=== PATIENT | male | born 1940 | race Caucasian/White ===

== ENCOUNTER 2021-01-12 15:04 | Outpatient (CLI) | payer MEDICARE | END 2021-01-12 15:05 | disposition home or self-care (01) | LOC: RAD-FRANK 15:04 | PROVIDERS: ATTEND Nurse Practitioner Family | DX: M25.512 Pain in left shoulder (principal) ==

== ENCOUNTER 2022-08-15 19:02 | Inpatient (IN) | payer MEDICARE ==
[2022-08-15] MEDS ORDERED: Morphine 4 MG/ML VIAL ONE (19:53)
[2022-08-15 19:59] LABS: INR-International Normal Ratio 0.9; Prothrombin Time 12.9 sec (12.0-14.7)
[2022-08-15 20:05] LABS: #Eosinphils 0.3 thou/uL (0.0-0.7); #Lymphocytes 1.1 thou/uL (1.20-3.40); #Monocytes 0.4 thou/uL (0.11-0.59); #Neutrophils 7.5 thou/uL (1.40-6.50); %Basophils 0.2 % (0.0-1.0); %Eosinophils 3.1 % (0.0-10.0); %Lymphocytes 11.4 % (21.0-51.0); %Monocytes 4.8 % (0.0-10.0); %Neutrophils 80.5 % (42.0-75.0); Mean Corpuscular HGB CONC 34.8 g/dL (32.0-36.0); Mean Corpuscular Hemoglobin 32.7 pg (27.0-31.0); Mean Corpuscular Volume 94.1 fl (78.0-98.0); Mean Platelet Volume 8.8 fL (7.4-10.4); Platelet Count 113 10x3/uL (130-400); RBC Distribution Width 12.1 % (11.5-14.5); Red Blood Cell (RBC) Count 3.37 mill/uL (4.70-6.10); White Blood Cell (WBC) Count 9.4 10x3/uL (4.8-10.8)
[2022-08-15 20:09] LABS: ALT (SGPT) 11 U/L (8-55); AST (SGOT) 16 U/L (5-34); Albumin 3.9 g/dL (3.4-4.8); Alkaline Phosphatase 103 U/L (40-110); Anion Gap 12 mmol/L (10-20); BUN (Urea Nitrogen) 31 mg/dL (8.4-25.7); Bilirubin, Total 0.4 mg/dL (0.2-1.2); Calc. Creatinine Clearance 0 mL/min (70-130); Carbon Dioxide 26 mmol/L (23-31); Chloride 108 mmol/L (98-107); Estimated GFR 39; Glucose 144 mg/dL (83-110); Protein, Total 6.9 g/dL (5.8-8.1); Sodium 141 mmol/L (136-145)
[2022-08-15 20:35] LABS: Platelet Morphology Comment Appears Decreased; RBC Morphology Normal
[2022-08-15] MEDS ORDERED: Morphine 2 MG/ML VIAL ONE (21:08)
[2022-08-15] MEDS ORDERED: Ipratropium/Albuterol 3 ML NEB NEB PRN (21:46)
[2022-08-15] MEDS ORDERED: Dextrose 5% in Water 1,000 ML IV PRN (21:46)
[2022-08-15] MEDS ORDERED: Ondansetron ODT 4 MG TAB PO PRN (21:46)
[2022-08-15] MEDS ORDERED: Ondansetron PF 4 MG/2 ML Vial IVP PRN (21:46)
[2022-08-15] MEDS ORDERED: Dextrose 50% Abboject 50 ML SYRINGE SLOW IVP PRN (21:46)
[2022-08-15] MEDS ORDERED: hydrALAZINE 20 MG/ML VIAL SLOW IVP PRN (21:46)
[2022-08-15] MEDS ORDERED: Cyclobenzaprine 10 MG TAB PO PRN (21:49)
[2022-08-15] MEDS ORDERED: traMADol HCl 50 MG TAB PO PRN (21:49)
[2022-08-15] MEDS ORDERED: Morphine 4 MG/ML VIAL SLOW IVP PRN (22:54)
[2022-08-15] MEDS: Acetaminophen 500 MG TAB PO SCH (23:14)
[2022-08-15] MEDS: Gabapentin 100 MG CAP PO SCH (23:14)
[2022-08-15] MEDS: traMADol HCl 50 MG TAB PO SCH (23:15)
[2022-08-15] MEDS: Sodium Chloride 0.9% 1,000 ML IV SCH (23:15)
[2022-08-15 23:40] VITALS: BMI 27.9
[2022-08-16 00:22] LABS: SARS-CoV-2 NAA Rapid Test Not Detected (NotDetected)
[2022-08-16] MEDS: Acetaminophen 500 MG TAB PO SCH ×4 (04:50→22:42)
[2022-08-16] MEDS: Gabapentin 100 MG CAP PO SCH ×3 (05:04→22:42)
[2022-08-16] MEDS: Sodium Chloride 0.9% 1,000 ML IV SCH (05:54)
[2022-08-16] MEDS: Morphine 4 MG/ML VIAL SLOW IVP PRN ×2 (06:29→09:53)
[2022-08-16 06:39] LABS: #Eosinphils 0.1 thou/uL (0.0-0.7); #Lymphocytes 1.2 thou/uL (1.20-3.40); #Monocytes 0.4 thou/uL (0.11-0.59); #Neutrophils 4.8 thou/uL (1.40-6.50); %Basophils 0.3 % (0.0-1.0); %Eosinophils 1.2 % (0.0-10.0); %Lymphocytes 18.8 % (21.0-51.0); %Monocytes 6.4 % (0.0-10.0); %Neutrophils 73.3 % (42.0-75.0); Hemoglobin 9.8 g/dL (14.0-18.0); Mean Corpuscular HGB CONC 34.3 g/dL (32.0-36.0); Mean Corpuscular Hemoglobin 32.3 pg (27.0-31.0); Mean Corpuscular Volume 94.1 fl (78.0-98.0); Mean Platelet Volume 8.3 fL (7.4-10.4); Platelet Count 87 10x3/uL (130-400); RBC Distribution Width 12.2 % (11.5-14.5); Red Blood Cell (RBC) Count 3.02 mill/uL (4.70-6.10); White Blood Cell (WBC) Count 6.6 10x3/uL (4.8-10.8)
[2022-08-16 07:02] LABS: Anion Gap 11 mmol/L (10-20); BUN (Urea Nitrogen) 33 mg/dL (8.4-25.7); Calc. Creatinine Clearance 50 mL/min (70-130); Calcium 8.6 mg/dL (7.8-10.44); Carbon Dioxide 25 mmol/L (23-31); Chloride 109 mmol/L (98-107); Estimated GFR 46; Glucose 119 mg/dL (83-110); Magnesium 1.7 mg/dL (1.6-2.6); Phosphorus 3.4 mg/dL (2.3-4.7); Potassium 4.6 mmol/L (3.5-5.1); Sodium 140 mmol/L (136-145)
[2022-08-16] MEDS ORDERED: PHOS-NAK 1 PKT PACK PO SCH (08:00)
[2022-08-16] MEDS ORDERED: Magnesium 2 GM/50 ML(in water) 2 GM in Premix Bag 1 BAG IVPB SCH (08:00)
[2022-08-16] MEDS: Senokot S 8.6-50 MG TAB PO SCH ×2 (09:52→22:42)
[2022-08-16] MEDS: Polyethylene Glycol 3350 17 GM Packet PO SCH (09:52)
[2022-08-16] MEDS: Tamsulosin HCl 0.4 MG CAP PO SCH (09:52)
[2022-08-16] MEDS: Famotidine 20 MG TAB PO SCH (09:52)
[2022-08-16] MEDS ORDERED: CEFAZOLIN 2 GM in Sodium Chloride 0.9% 100 ML IVPB SCH ×2 (10:15→17:09)
[2022-08-16] MEDS: traMADol HCl 50 MG TAB PO SCH ×2 (12:26→22:42)
[2022-08-16] MEDS ORDERED: Sodium Chloride 0.9% 100 ML ONE (15:25)
[2022-08-16] MEDS ORDERED: CEFAZOLIN 2 GM VIAL ONE (15:25)
[2022-08-16] MEDS ORDERED: fentaNYL PF 100 MCG/2 ML SYRINGE ONE (15:26)
[2022-08-16] MEDS ORDERED: Lidocaine 1% PF 5 ML VIAL ONE (15:35)
[2022-08-16] MEDS ORDERED: ePHEDrine 50 MG/ML VIAL ONE (15:35)
[2022-08-16] MEDS ORDERED: PHENYLEPHRINE-NS 100 MCG/ML 10 ML SYRINGE ONE (15:35)
[2022-08-16] MEDS ORDERED: PROPOFOL 200 MG/20 ML VIAL ONE (15:35)
[2022-08-16] MEDS ORDERED: Ondansetron PF 4 MG/2 ML Vial ONE (15:35)
[2022-08-16] MEDS ORDERED: Rocuronium Bromide 10 MG/ML (10ML VIAL) ONE (15:35)
[2022-08-16] MEDS ORDERED: Phenylephrine 10 MG/ML VIAL ONE (16:01)
[2022-08-16] MEDS ORDERED: SUGAMMADEX SODIUM 200 MG/2 ML VIAL ONE (16:35)
[2022-08-17] MEDS: Acetaminophen 500 MG TAB PO SCH ×4 (03:16→20:59)
[2022-08-17] MEDS: Gabapentin 100 MG CAP PO SCH ×3 (05:35→20:54)
[2022-08-17 06:18] LABS: Anion Gap 10 mmol/L (10-20); BUN (Urea Nitrogen) 25 mg/dL (8.4-25.7); Calc. Creatinine Clearance 55 mL/min (70-130); Calcium 8.7 mg/dL (7.8-10.44); Carbon Dioxide 25 mmol/L (23-31); Chloride 110 mmol/L (98-107); Estimated GFR 51; Glucose 115 mg/dL (83-110); Magnesium 1.9 mg/dL (1.6-2.6); Sodium 140 mmol/L (136-145)
[2022-08-17 06:31] LABS: #Eosinphils 0.1 thou/uL (0.0-0.7); #Lymphocytes 0.6 thou/uL (1.20-3.40); #Monocytes 0.3 thou/uL (0.11-0.59); %Basophils 0.2 % (0.0-1.0); %Eosinophils 2.3 % (0.0-10.0); %Lymphocytes 11.5 % (21.0-51.0); %Monocytes 5.7 % (0.0-10.0); %Neutrophils 80.3 % (42.0-75.0); Hemoglobin 8.9 g/dL (14.0-18.0); Mean Corpuscular HGB CONC 34.1 g/dL (32.0-36.0); Mean Corpuscular Volume 96.7 fl (78.0-98.0); Mean Platelet Volume 8.5 fL (7.4-10.4); Platelet Count 77 10x3/uL (130-400)
[2022-08-17] MEDS: Polyethylene Glycol 3350 17 GM Packet PO SCH (09:48)
[2022-08-17] MEDS: Tamsulosin HCl 0.4 MG CAP PO SCH (09:48)
[2022-08-17] MEDS: Senokot S 8.6-50 MG TAB PO SCH ×2 (09:48→20:54)
[2022-08-17] MEDS: Famotidine 20 MG TAB PO SCH (09:49)
[2022-08-17] MEDS: traMADol HCl 50 MG TAB PO SCH ×2 (12:59→22:16)
[2022-08-17] MEDS: hydrALAZINE 25 MG TAB PO SCH ×2 (15:01→20:54)
[2022-08-17] MEDS: Heparin 5,000 UNITS/ML VIAL SC SCH ×2 (16:28→20:56)
[2022-08-17] MEDS: Rosuvastatin 20 MG TAB PO SCH (20:54)
[2022-08-18] MEDS: Acetaminophen 500 MG TAB PO SCH ×4 (03:29→20:57)
[2022-08-18] MEDS: Gabapentin 100 MG CAP PO SCH ×3 (05:40→20:57)
[2022-08-18 06:31] LABS: Anion Gap 12 mmol/L (10-20); BUN (Urea Nitrogen) 28 mg/dL (8.4-25.7); Calc. Creatinine Clearance 54 mL/min (70-130); Calcium 8.9 mg/dL (7.8-10.44); Carbon Dioxide 25 mmol/L (23-31); Chloride 107 mmol/L (98-107); Estimated GFR 50; Glucose 115 mg/dL (83-110); Magnesium 1.8 mg/dL (1.6-2.6); Potassium 4.5 mmol/L (3.5-5.1); Sodium 139 mmol/L (136-145)
[2022-08-18 06:33] LABS: Mean Corpuscular HGB CONC 33.4 g/dL (32.0-36.0); Mean Corpuscular Hemoglobin 32.1 pg (27.0-31.0); Mean Platelet Volume 8.7 fL (7.4-10.4); Platelet Count 89 10x3/uL (130-400); RBC Distribution Width 11.9 % (11.5-14.5); White Blood Cell (WBC) Count 6.7 10x3/uL (4.8-10.8)
[2022-08-18 06:53] LABS: Band 2 % (5-11); Eosinophils 6 % (0-10); Lymphocytes 17 % (21-51); MDiff Complete? YES; Monocytes 3 % (0-10); Neutrophil 72 % (42-75); Platelet Morphology Comment Appears Decreased
[2022-08-18] MEDS: Metoprolol Tartrate 25 MG TAB PO SCH (08:51)
[2022-08-18] MEDS: Polyethylene Glycol 3350 17 GM Packet PO SCH (08:51)
[2022-08-18] MEDS: Tamsulosin HCl 0.4 MG CAP PO SCH (08:51)
[2022-08-18] MEDS: Senokot S 8.6-50 MG TAB PO SCH ×2 (08:51→20:46)
[2022-08-18] MEDS: Famotidine 20 MG TAB PO SCH (08:51)
[2022-08-18] MEDS: Heparin 5,000 UNITS/ML VIAL SC SCH ×3 (08:51→20:47)
[2022-08-18] MEDS: hydrALAZINE 25 MG TAB PO SCH ×3 (08:59→20:45)
[2022-08-18] MEDS: traMADol HCl 50 MG TAB PO SCH ×2 (10:15→23:20)
[2022-08-18] MEDS: Rosuvastatin 20 MG TAB PO SCH (20:46)
[2022-08-19] MEDS: Acetaminophen 500 MG TAB PO SCH ×4 (04:54→22:43)
[2022-08-19] MEDS: Gabapentin 100 MG CAP PO SCH ×3 (05:57→22:43)
[2022-08-19 06:56] LABS: Anion Gap 13 mmol/L (10-20); BUN (Urea Nitrogen) 33 mg/dL (8.4-25.7); Calc. Creatinine Clearance 51 mL/min (70-130); Calcium 8.8 mg/dL (7.8-10.44); Carbon Dioxide 22 mmol/L (23-31); Chloride 108 mmol/L (98-107); Estimated GFR 47; Glucose 107 mg/dL (83-110); Magnesium 1.8 mg/dL (1.6-2.6); Phosphorus 3.2 mg/dL (2.3-4.7); Potassium 4.8 mmol/L (3.5-5.1); Sodium 138 mmol/L (136-145)
[2022-08-19 07:20] LABS: #Eosinphils 0.4 thou/uL (0.0-0.7); #Lymphocytes 1.2 thou/uL (1.20-3.40); #Monocytes 0.5 thou/uL (0.11-0.59); #Neutrophils 3.8 thou/uL (1.40-6.50); %Basophils 0.2 % (0.0-1.0); %Eosinophils 7.7 % (0.0-10.0); %Lymphocytes 19.6 % (21.0-51.0); %Monocytes 7.9 % (0.0-10.0); %Neutrophils 64.6 % (42.0-75.0); Hemoglobin 8.9 g/dL (14.0-18.0); Mean Corpuscular HGB CONC 33.8 g/dL (32.0-36.0); Mean Corpuscular Volume 94.7 fl (78.0-98.0); Mean Platelet Volume 10.1 fL (7.4-10.4); Platelet Count 89 10x3/uL (130-400); Red Blood Cell (RBC) Count 2.79 mill/uL (4.70-6.10); White Blood Cell (WBC) Count 5.9 10x3/uL (4.8-10.8)
[2022-08-19] MEDS: Tamsulosin HCl 0.4 MG CAP PO SCH (08:07)
[2022-08-19] MEDS: Heparin 5,000 UNITS/ML VIAL SC SCH ×3 (08:07→20:36)
[2022-08-19] MEDS: Senokot S 8.6-50 MG TAB PO SCH ×2 (08:08→20:36)
[2022-08-19] MEDS: Famotidine 20 MG TAB PO SCH (08:08)
[2022-08-19] MEDS: hydrALAZINE 25 MG TAB PO SCH ×3 (08:08→20:33)
[2022-08-19] MEDS: Metoprolol Tartrate 25 MG TAB PO SCH (08:08)
[2022-08-19] MEDS: Polyethylene Glycol 3350 17 GM Packet PO SCH (08:09)
[2022-08-19] MEDS ORDERED: PHOS-NAK 1 PKT PACK PO SCH (08:15)
[2022-08-19] MEDS ORDERED: Magnesium 2 GM/50 ML(in water) 2 GM in Premix Bag 1 BAG IVPB SCH (08:30)
[2022-08-19] MEDS: traMADol HCl 50 MG TAB PO SCH ×2 (10:45→22:43)
[2022-08-19] MEDS: Rosuvastatin 20 MG TAB PO SCH (20:35)
[2022-08-20] MEDS: Acetaminophen 500 MG TAB PO SCH ×4 (04:58→20:24)
[2022-08-20] MEDS: Gabapentin 100 MG CAP PO SCH ×3 (05:50→20:15)
[2022-08-20 06:17] LABS: Anion Gap 11 mmol/L (10-20); BUN (Urea Nitrogen) 31 mg/dL (8.4-25.7); Calc. Creatinine Clearance 56 mL/min (70-130); Calcium 8.7 mg/dL (7.8-10.44); Carbon Dioxide 27 mmol/L (23-31); Chloride 107 mmol/L (98-107); Estimated GFR 52; Glucose 99 mg/dL (83-110); Magnesium 1.8 mg/dL (1.6-2.6); Phosphorus 2.9 mg/dL (2.3-4.7); Potassium 4.6 mmol/L (3.5-5.1); Sodium 140 mmol/L (136-145)
[2022-08-20 06:26] LABS: #Eosinphils 0.3 thou/uL (0.0-0.7); #Monocytes 0.3 thou/uL (0.11-0.59); #Neutrophils 2.6 thou/uL (1.40-6.50); %Basophils 0.2 % (0.0-1.0); %Eosinophils 8.1 % (0.0-10.0); %Lymphocytes 22.9 % (21.0-51.0); %Monocytes 7.6 % (0.0-10.0); %Neutrophils 61.2 % (42.0-75.0); Hemoglobin 8.3 g/dL (14.0-18.0); Mean Corpuscular HGB CONC 33.5 g/dL (32.0-36.0); Mean Corpuscular Hemoglobin 31.9 pg (27.0-31.0); Mean Corpuscular Volume 95.4 fl (78.0-98.0); Mean Platelet Volume 8.3 fL (7.4-10.4); Platelet Count 115 10x3/uL (130-400); RBC Distribution Width 11.8 % (11.5-14.5); Red Blood Cell (RBC) Count 2.59 mill/uL (4.70-6.10); White Blood Cell (WBC) Count 4.3 10x3/uL (4.8-10.8)
[2022-08-20] MEDS ORDERED: Magnesium 2 GM/50 ML(in water) 2 GM in Premix Bag 1 BAG IVPB SCH (08:00)
[2022-08-20] MEDS ORDERED: PHOS-NAK 1 PKT PACK PO SCH (08:00)
[2022-08-20] MEDS: Polyethylene Glycol 3350 17 GM Packet PO SCH (09:14)
[2022-08-20] MEDS: Senokot S 8.6-50 MG TAB PO SCH ×2 (09:15→20:16)
[2022-08-20] MEDS: Tamsulosin HCl 0.4 MG CAP PO SCH (09:15)
[2022-08-20] MEDS: Famotidine 20 MG TAB PO SCH (09:15)
[2022-08-20] MEDS: Heparin 5,000 UNITS/ML VIAL SC SCH ×3 (09:15→20:16)
[2022-08-20] MEDS: Metoprolol Tartrate 25 MG TAB PO SCH (09:16)
[2022-08-20] MEDS: hydrALAZINE 25 MG TAB PO SCH ×3 (09:16→20:16)
[2022-08-20] MEDS: traMADol HCl 50 MG TAB PO SCH ×2 (12:24→23:49)
[2022-08-20] MEDS: Rosuvastatin 20 MG TAB PO SCH (20:17)
[2022-08-21] MEDS: traMADol HCl 50 MG TAB PO SCH (00:05)
[2022-08-21] MEDS: Acetaminophen 500 MG TAB PO SCH ×2 (05:42→09:58)
[2022-08-21] MEDS: Gabapentin 100 MG CAP PO SCH ×2 (05:42→14:42)
[2022-08-21] MEDS: Metoprolol Tartrate 25 MG TAB PO SCH (09:58)
[2022-08-21] MEDS: Tamsulosin HCl 0.4 MG CAP PO SCH (09:58)
[2022-08-21] MEDS: Heparin 5,000 UNITS/ML VIAL SC SCH ×2 (09:58→14:42)
[2022-08-21] MEDS: hydrALAZINE 25 MG TAB PO SCH ×2 (09:58→14:42)
[2022-08-21] MEDS: Senokot S 8.6-50 MG TAB PO SCH (09:59)
[2022-08-21] MEDS: Polyethylene Glycol 3350 17 GM Packet PO SCH (09:59)
[2022-08-21] MEDS ORDERED: Acetaminophen/Codeine 30-300mg Tablet PO SCH (12:00)
[2022-08-21] MEDS ORDERED: Acetaminophen 325 MG TAB PO SCH (12:00)
[2022-08-21 12:40] VITALS: TEMP 97.4
[2022-08-21 12:46] VITALS: BP 108/55
== END 2022-08-21 14:47 | DRG 481 ==
LOC: ERS 19:02 → SURG B 20:44 → SURG A 08-19 18:04
PROVIDERS: ADMIT Surgery; ATTEND Surgery
PROC: 0QH604Z Insertion of Internal Fixation Device into Right Upper Femur, Open Approach (ICD-10-PCS; principal; 2022-08-16)
DX: S72.141A Displaced intertrochanteric fracture of right femur, initial encounter for closed fracture (principal); N17.9 Acute kidney failure, unspecified; Z20.822 Contact with and (suspected) exposure to COVID-19; I25.10 Atherosclerotic heart disease of native coronary artery without angina pectoris; I10 Essential (primary) hypertension; E78.5 Hyperlipidemia, unspecified; I51.7 Cardiomegaly; W07.XXXA Fall from chair, initial encounter; D69.6 Thrombocytopenia, unspecified; E83.42 Hypomagnesemia; R33.9 Retention of urine, unspecified; Z90.49 Acquired absence of other specified parts of digestive tract; Z88.8 Allergy status to other drugs, medicaments and biological substances; Z95.1 Presence of aortocoronary bypass graft; Z79.899 Other long term (current) drug therapy; Z79.82 Long term (current) use of aspirin
CPT/HCPCS: 36415; 70450; 71045; 72125; 72170; 80048; 80053; 83735; 84100; 85025; 85610; 85730; 86850; 86900; 86901; 93005; 96374; 96376; C1713; J1644; J2270; J2272; J2370; J2405; J2704; J3475; J3490; J7050; U0002

== ENCOUNTER 2022-11-07 10:25 | Inpatient (IN) | payer MEDICARE, OTHER ==
[2022-11-07 11:45] LABS: Actual Bicarbonate (HCO3v) 23 mEq/L (22-28); Base Excess 1.1 mEq/L (-2.0 to +3.0); Calcium, Ionized (venous) 0.91 mmol/L (1.16-1.32); Chloride (VBG) 111 mmol/L (98-106); Potassium (VBG) 4.71 mmol/L (3.70-5.30); pH (venous) 7.61 (7.32-7.43)
[2022-11-07 11:46] LABS: Hemoglobin (Hb) 4.8 g/dL (12.6-17.4)
[2022-11-07 12:07] LABS: ALT (SGPT) 12 U/L (8-55); AST (SGOT) 11 U/L (5-34); Albumin 2.6 g/dL (3.4-4.8); Alkaline Phosphatase 62 U/L (40-110); Anion Gap 13 mmol/L (10-20); BUN (Urea Nitrogen) 58 mg/dL (8.4-25.7); Bilirubin, Total 0.4 mg/dL (0.2-1.2); Calc. Creatinine Clearance 0 mL/min (70-130); Calcium 7.5 mg/dL (7.8-10.44); Carbon Dioxide 24 mmol/L (23-31); Chloride 113 mmol/L (98-107); Estimated GFR 58; Glucose 131 mg/dL (83-110); INR-International Normal Ratio 1.1; PTT 28.4 sec (22.9-36.1); Potassium 4.9 mmol/L (3.5-5.1); Protein, Total 4.6 g/dL (5.8-8.1); Prothrombin Time 14.9 sec (12.0-14.7); Sodium 145 mmol/L (136-145)
[2022-11-07 12:09] LABS: Hemoglobin 4.8 g/dL (14.0-18.0)
[2022-11-07 12:20] LABS: Bilirubin Negative (Negative); Blood, Urine Negative (Negative); Clarity Clear (Clear); Glucose, Urine (Dipstick) Normal (Negative); Ketone, Urine Negative (Negative); Leukocyte Negative Leu/uL (Negative); Nitrite Negative (Negative); Protein, Urine (Dipstick) Negative (Neg-Trace); Specific Gravity, Urine 1.014 (1.002-1.036); Urobilinogen Normal mg/dL (Less than 2)
[2022-11-07] MEDS ORDERED: Pantoprazole 40 MG VIAL ONE (12:20)
[2022-11-07 12:24] LABS: #Lymphocytes 0.9 thou/uL (1.20-3.40); #Monocytes 0.3 thou/uL (0.11-0.59); #Neutrophils 4.8 thou/uL (1.40-6.50); %Basophils 0.6 % (0.0-1.0); %Eosinophils 0.5 % (0.0-10.0); %Monocytes 4.1 % (0.0-10.0); %Neutrophils 79.8 % (42.0-75.0); Mean Corpuscular HGB CONC 32.9 g/dL (32.0-36.0); Mean Corpuscular Hemoglobin 30.9 pg (27.0-31.0); Mean Platelet Volume 8.9 fL (7.4-10.4); Platelet Count 95 10x3/uL (130-400); RBC Distribution Width 12.9 % (11.5-14.5); Red Blood Cell (RBC) Count 1.53 mill/uL (4.70-6.10)
[2022-11-07] MEDS ORDERED: Iopamidol-370 76% 500 ML MDV (1 ML CHARGE) ONE (12:38)
[2022-11-07] MEDS ORDERED: cefTRIAXone (ROCEPHIN) 2 GM VIAL ONE (13:57)
[2022-11-07 16:30] VITALS: BMI 29.8
[2022-11-07] MEDS ORDERED: fentaNYL 50 mcg/mL 1 mL Vial ONE (16:52)
[2022-11-07] MEDS ORDERED: Ondansetron ODT 4 MG TAB PO PRN (17:13)
[2022-11-07] MEDS ORDERED: Acetaminophen/Codeine 30-300mg Tablet PO PRN (17:13)
[2022-11-07] MEDS ORDERED: hydrALAZINE 20 MG/ML VIAL SLOW IVP PRN (17:13)
[2022-11-07] MEDS ORDERED: Ondansetron PF 4 MG/2 ML Vial IVP PRN (17:13)
[2022-11-07] MEDS ORDERED: PROPOFOL 200 MG/20 ML VIAL ONE (17:23)
[2022-11-07] MEDS ORDERED: Succinylcholine Chloride 100 MG/5 ML SYRINGE FS ONE (17:23)
[2022-11-07] MEDS ORDERED: Lidocaine 1% PF 5 ML VIAL ONE (17:23)
[2022-11-07] MEDS ORDERED: Ondansetron PF 4 MG/2 ML Vial ONE (17:23)
[2022-11-07] MEDS ORDERED: ePHEDrine Sulfate 50 MG/10 ML VIAL ONE (17:23)
[2022-11-07] MEDS ORDERED: Calcium Chloride 1 GM/10 ML Abboject SYRINGE ONE (17:23)
[2022-11-07] MEDS ORDERED: EPINEPHrine 1 MG/10 ML Abboject SYRINGE ONE (17:23)
[2022-11-07] MEDS ORDERED: Promethazine HCl 25 MG/ML VIAL IM PRN (18:12)
[2022-11-07] MEDS ORDERED: Ondansetron HCl/PF 4 MG/2 ML Vial IVP PRN (18:12)
[2022-11-07] MEDS: Pantoprazole 40 MG VIAL IVP SCH (21:28)
[2022-11-07] MEDS: Sodium Chloride 0.9% 1,000 ML IV SCH (21:29)
[2022-11-07] MEDS: hydrALAZINE 25 MG TAB PO SCH (21:35)
[2022-11-07] MEDS: Gabapentin 100 MG CAP PO SCH (21:35)
[2022-11-07 21:54] LABS: Hemoglobin 8.1 g/dL (14.0-18.0)
[2022-11-08] MEDS: Gabapentin 100 MG CAP PO SCH ×3 (04:48→21:42)
[2022-11-08] MEDS ORDERED: Electrolyte Replacement Protocol 1 EACH FS SCH (05:00)
[2022-11-08 05:21] LABS: Actual Bicarbonate (HCO3v) 24 mEq/L (22-28); Chloride (VBG) 112 mmol/L (98-106); Hemoglobin (Hb) 7.6 g/dL (12.6-17.4); Potassium (VBG) 4.34 mmol/L (3.70-5.30); Sodium 144.7 mmol/L (133-146); pH (venous) 7.37 (7.32-7.43)
[2022-11-08 05:57] LABS: ALT (SGPT) 14 U/L (8-55); AST (SGOT) 14 U/L (5-34); Albumin 2.8 g/dL (3.4-4.8); Alkaline Phosphatase 65 U/L (40-110); Anion Gap 11 mmol/L (10-20); BUN (Urea Nitrogen) 65 mg/dL (8.4-25.7); Bilirubin, Total 0.8 mg/dL (0.2-1.2); Calc. Creatinine Clearance 59 mL/min (70-130); Carbon Dioxide 24 mmol/L (23-31); Chloride 115 mmol/L (98-107); Estimated GFR 51; Glucose 114 mg/dL (83-110); Potassium 4.5 mmol/L (3.5-5.1); Protein, Total 4.8 g/dL (5.8-8.1); Sodium 145 mmol/L (136-145)
[2022-11-08 06:01] LABS: #Eosinphils 0.1 thou/uL (0.0-0.7); #Lymphocytes 1.6 thou/uL (1.20-3.40); #Monocytes 0.6 thou/uL (0.11-0.59); #Neutrophils 6.9 thou/uL (1.40-6.50); %Basophils 0.1 % (0.0-1.0); %Eosinophils 0.8 % (0.0-10.0); %Lymphocytes 17.4 % (21.0-51.0); %Monocytes 6.5 % (0.0-10.0); %Neutrophils 75.1 % (42.0-75.0); Hemoglobin 7.3 g/dL (14.0-18.0); Mean Corpuscular HGB CONC 34.1 g/dL (32.0-36.0); Mean Corpuscular Hemoglobin 32.6 pg (27.0-31.0); Mean Corpuscular Volume 95.6 fl (78.0-98.0); Mean Platelet Volume 8.4 fL (7.4-10.4); Platelet Count 101 10x3/uL (130-400); RBC Distribution Width 13.6 % (11.5-14.5); Red Blood Cell (RBC) Count 2.22 mill/uL (4.70-6.10); White Blood Cell (WBC) Count 9.2 10x3/uL (4.8-10.8)
[2022-11-08] MEDS: Sodium Chloride 0.9% 1,000 ML IV SCH ×2 (07:30→18:18)
[2022-11-08] MEDS: Rosuvastatin 20 MG TAB PO SCH (09:00)
[2022-11-08] MEDS: Pantoprazole 40 MG VIAL IVP SCH ×2 (09:54→21:43)
[2022-11-08] MEDS: Metoprolol Tartrate 25 MG TAB PO SCH (09:55)
[2022-11-08] MEDS: hydrALAZINE 25 MG TAB PO SCH ×3 (09:56→21:41)
[2022-11-08 17:46] LABS: Hemoglobin 6.2 g/dL (14.0-18.0)
[2022-11-08] MEDS: Acetaminophen 500 MG TAB PO PRN (21:39)
[2022-11-09 04:33] LABS: Hemoglobin 7.2 g/dL (14.0-18.0); Mean Corpuscular HGB CONC 34.8 g/dL (32.0-36.0); Mean Corpuscular Hemoglobin 33.4 pg (27.0-31.0); Mean Corpuscular Volume 95.8 fl (78.0-98.0); Mean Platelet Volume 8.8 fL (7.4-10.4); Platelet Count 96 10x3/uL (130-400); RBC Distribution Width 14.4 % (11.5-14.5); Red Blood Cell (RBC) Count 2.15 mill/uL (4.70-6.10)
[2022-11-09 05:04] LABS: #Eosinphils 0.3 thou/uL (0.0-0.7); #Lymphocytes 1.4 thou/uL (1.20-3.40); #Monocytes 0.4 thou/uL (0.11-0.59); #Neutrophils 4.3 thou/uL (1.40-6.50); %Eosinophils 4.6 % (0.0-10.0); %Lymphocytes 21.5 % (21.0-51.0); %Monocytes 6.2 % (0.0-10.0); %Neutrophils 67.7 % (42.0-75.0); Eosinophils 3 % (0-10); Lymphocytes 21 % (21-51); MDiff Complete? YES; Monocytes 2 % (0-10); Neutrophil 74 % (42-75); Platelet Morphology Comment Appears Decreased; Polychromasia SLIGHT = 2-3 cells (100X) (0-2/hpf); White Blood Cell (WBC) Count 6.4 10x3/uL (4.8-10.8)
[2022-11-09] MEDS: Gabapentin 100 MG CAP PO SCH ×3 (06:37→21:02)
[2022-11-09] MEDS: hydrALAZINE 25 MG TAB PO SCH ×3 (09:33→21:01)
[2022-11-09] MEDS: Rosuvastatin 20 MG TAB PO SCH (09:33)
[2022-11-09] MEDS: Pantoprazole 40 MG VIAL IVP SCH ×2 (09:33→21:02)
[2022-11-09] MEDS: Sodium Chloride 0.9% 1,000 ML IV SCH ×2 (09:33→21:10)
[2022-11-09] MEDS: Metoprolol Tartrate 25 MG TAB PO SCH (09:33)
[2022-11-10] MEDS: Gabapentin 100 MG CAP PO SCH ×3 (05:56→20:47)
[2022-11-10] MEDS: Pantoprazole 40 MG VIAL IVP SCH (09:14)
[2022-11-10] MEDS: Rosuvastatin 20 MG TAB PO SCH (09:15)
[2022-11-10] MEDS: hydrALAZINE 25 MG TAB PO SCH ×3 (09:15→20:47)
[2022-11-10] MEDS: Metoprolol Tartrate 25 MG TAB PO SCH (09:15)
[2022-11-10 15:56] LABS: Hemoglobin 7.1 g/dL (14.0-18.0)
[2022-11-10] MEDS: Sodium Chloride 0.9% 1,000 ML IV SCH (17:29)
[2022-11-10] MEDS: Acetaminophen 500 MG TAB PO PRN (20:48)
[2022-11-11] MEDS: Sodium Chloride 0.9% 1,000 ML IV SCH ×2 (02:02→14:35)
[2022-11-11] MEDS: Gabapentin 100 MG CAP PO SCH ×3 (06:34→20:13)
[2022-11-11 07:24] LABS: Hemoglobin 7.1 g/dL (14.0-18.0); Mean Corpuscular HGB CONC 32.4 g/dL (32.0-36.0); Mean Corpuscular Hemoglobin 30.9 pg (27.0-31.0); Mean Corpuscular Volume 95.6 fl (78.0-98.0); Platelet Count 85 10x3/uL (130-400); RBC Distribution Width 14.7 % (11.5-14.5); Red Blood Cell (RBC) Count 2.31 mill/uL (4.70-6.10); White Blood Cell (WBC) Count 4.6 10x3/uL (4.8-10.8)
[2022-11-11] MEDS: Metoprolol Tartrate 25 MG TAB PO SCH (08:34)
[2022-11-11] MEDS: hydrALAZINE 25 MG TAB PO SCH ×3 (08:35→20:12)
[2022-11-11] MEDS: Rosuvastatin 20 MG TAB PO SCH (08:35)
[2022-11-12] MEDS: Sodium Chloride 0.9% 1,000 ML IV SCH (03:55)
[2022-11-12] MEDS: Gabapentin 100 MG CAP PO SCH ×2 (05:35→13:59)
[2022-11-12] MEDS ORDERED: glipiZIDE 5 MG TAB PO SCH (07:30)
[2022-11-12] MEDS: Rosuvastatin 20 MG TAB PO SCH (08:51)
[2022-11-12] MEDS: Metoprolol Tartrate 25 MG TAB PO SCH (08:51)
[2022-11-12] MEDS: hydrALAZINE 25 MG TAB PO SCH (08:51)
[2022-11-12 10:41] LABS: Mean Corpuscular HGB CONC 32.1 g/dL (32.0-36.0); Mean Corpuscular Hemoglobin 30.9 pg (27.0-31.0); Mean Corpuscular Volume 96.2 fl (78.0-98.0); Mean Platelet Volume 9.4 fL (7.4-10.4); Platelet Count 91 10x3/uL (130-400); RBC Distribution Width 15.2 % (11.5-14.5); Red Blood Cell (RBC) Count 2.57 mill/uL (4.70-6.10); White Blood Cell (WBC) Count 3.1 10x3/uL (4.8-10.8)
[2022-11-12 14:48] VITALS: BP 120/59; TEMP 97.3
== END 2022-11-12 14:34 | disposition home or self-care (01) | DRG 377 ==
LOC: ERS 10:25 → IMCU/EMU 14:04 → SURG B 11-09 11:11 → SURG A 11-10 15:45
PROVIDERS: ADMIT Family Medicine; ATTEND Hospitalist
PROC: 0W3P8ZZ Control Bleeding in Gastrointestinal Tract, Via Natural or Artificial Opening Endoscopic (ICD-10-PCS; principal; 2022-11-07)
PROC: 30233N1 Transfusion of Nonautologous Red Blood Cells into Peripheral Vein, Percutaneous Approach (ICD-10-PCS; 2022-11-07)
PROC: 4A133R1 Monitoring of Arterial Saturation, Peripheral, Percutaneous Approach (ICD-10-PCS; 2022-11-07)
DX: K26.4 Chronic or unspecified duodenal ulcer with hemorrhage (principal); G93.41 Metabolic encephalopathy; D62 Acute posthemorrhagic anemia; N17.9 Acute kidney failure, unspecified; E87.3 Alkalosis; F03.90 Unspecified dementia, unspecified severity, without behavioral disturbance, psychotic disturbance, mood disturbance, and anxiety; K21.00 Gastro-esophageal reflux disease with esophagitis, without bleeding; K25.9 Gastric ulcer, unspecified as acute or chronic, without hemorrhage or perforation; I12.9 Hypertensive chronic kidney disease with stage 1 through stage 4 chronic kidney disease, or unspecified chronic kidney disease; N18.30 Chronic kidney disease, stage 3 unspecified; E88.09 Other disorders of plasma-protein metabolism, not elsewhere classified; L89.321 Pressure ulcer of left buttock, stage 1; E78.5 Hyperlipidemia, unspecified; I25.10 Atherosclerotic heart disease of native coronary artery without angina pectoris; Z88.8 Allergy status to other drugs, medicaments and biological substances; Z95.1 Presence of aortocoronary bypass graft; Z90.49 Acquired absence of other specified parts of digestive tract; Z79.82 Long term (current) use of aspirin; Z79.899 Other long term (current) drug therapy
CPT/HCPCS: 36415; 36416; 36430; 51701; 70450; 71045; 74177; 80053; 81003; 82274; 82805; 83605; 84484; 85018; 85025; 85027; 85610; 85730; 86850; 86900; 86901; 86921; 87040; 87086; 87149; 87186; 87338; 96374; 96375; C9113; J0171; J0696; J2405; J2704; J3010; J7050; P9016; Q9967

== ENCOUNTER 2022-12-04 11:49 | Inpatient (IN) | payer MEDICARE, OTHER ==
[2022-12-04 12:52] LABS: Acetaminophen Less than 10.0 mcg/mL (10.0-30.0); Alcohol Less than 10 mg/dL (Less than 10); Salicylate Less than 8.0 mg/dL (15.0-30.0)
[2022-12-04 12:57] LABS: ALT (SGPT) 13 U/L (8-55); AST (SGOT) 16 U/L (5-34); Albumin 3.6 g/dL (3.4-4.8); Alkaline Phosphatase 100 U/L (40-110); Anion Gap 17 mmol/L (10-20); BUN (Urea Nitrogen) 21 mg/dL (8.4-25.7); Bilirubin, Total 0.5 mg/dL (0.2-1.2); CK (CPK) 29 U/L (30-200); Calc. Creatinine Clearance 0 mL/min (70-130); Calcium 8.3 mg/dL (7.8-10.44); Carbon Dioxide 23 mmol/L (23-31); Chloride 109 mmol/L (98-107); Estimated GFR 49; Globulin 2.8 g/dL (2.4-3.5); Glucose 99 mg/dL (83-110); Lipase 41 U/L (8-78); Potassium 4.2 mmol/L (3.5-5.1); Protein, Total 6.4 g/dL (5.8-8.1); Sodium 145 mmol/L (136-145)
[2022-12-04 13:08] LABS: Prothrombin Time 13.7 sec (12.0-14.7)
[2022-12-04 13:10] LABS: PTT 30.1 sec (22.9-36.1)
[2022-12-04 13:12] LABS: CKMB 1.3 ng/mL (0-6.6)
[2022-12-04 13:22] LABS: #Eosinphils 0.3 thou/uL (0.0-0.7); #Lymphocytes 1.6 thou/uL (1.20-3.40); #Monocytes 0.4 thou/uL (0.11-0.59); #Neutrophils 2.6 thou/uL (1.40-6.50); %Basophils 0.1 % (0.0-1.0); %Eosinophils 6.3 % (0.0-10.0); %Lymphocytes 32.2 % (21.0-51.0); %Monocytes 8.3 % (0.0-10.0); %Neutrophils 53.1 % (42.0-75.0); Hemoglobin 8.4 g/dL (14.0-18.0); Mean Corpuscular HGB CONC 33.3 g/dL (32.0-36.0); Mean Corpuscular Hemoglobin 31.1 pg (27.0-31.0); Mean Corpuscular Volume 93.6 fl (78.0-98.0); Mean Platelet Volume 9.2 fL (7.4-10.4); Platelet Count 100 10x3/uL (130-400); RBC Distribution Width 14.5 % (11.5-14.5); Red Blood Cell (RBC) Count 2.71 mill/uL (4.70-6.10); White Blood Cell (WBC) Count 4.9 10x3/uL (4.8-10.8)
[2022-12-04 13:26] LABS: Bacteria/HPF None Seen HPF (None Seen); Bilirubin Negative (Negative); Blood, Urine Negative (Negative); Clarity Clear (Clear); Glucose, Urine (Dipstick) Normal (Negative); Ketone, Urine Negative (Negative); Leukocyte Negative Leu/uL (Negative); Nitrite Negative (Negative); Protein, Urine (Dipstick) 30 mg/dL (Neg-Trace); RBC/HPF 0-3 HPF (0-3); Specific Gravity, Urine 1.015 (1.002-1.036); Squamous Epithelial 0-3 HPF (0-3); Urobilinogen Normal mg/dL (Less than 2); WBC/HPF 0-3 HPF (0-3); pH, Urine 5.5 (5.0-9.0)
[2022-12-04] MEDS ORDERED: Aspirin 300 MG Suppository ONE (13:39)
[2022-12-04] MEDS ORDERED: Labetalol HCl 100 MG/20 ML VIAL SLOW IVP PRN (14:34)
[2022-12-04] MEDS ORDERED: hydrALAZINE 20 MG/ML VIAL SLOW IVP PRN (14:34)
[2022-12-04] MEDS ORDERED: Pantoprazole 40 MG VIAL ONE (14:53)
[2022-12-04 15:04] LABS: Hemoglobin A1c 5.1 % (4.0-6.0)
[2022-12-04 17:20] LABS: Free T4 (Free Thyroxine) 0.91 ng/dL (0.70-1.48)
[2022-12-04] MEDS ORDERED: Cosyntropin 250 MCG VIAL SLOW IVP SCH (17:45)
[2022-12-04 18:49] VITALS: BMI 31.1
[2022-12-04 19:43] LABS: Troponin I 0.022 ng/mL (< 0.028)
[2022-12-04] MEDS: cefTRIAXone\\ROCEPHIN 1 GM in Sodium Chloride 0.9% 100 ML IVPB SCH (19:46)
[2022-12-04] MEDS: Dexamethasone 4 mg/ml Vial SLOW IVP SCH (19:46)
[2022-12-04] MEDS: Rosuvastatin 20 MG TAB PO SCH (21:00)
[2022-12-04] MEDS: Gabapentin 100 MG CAP PO SCH (21:01)
[2022-12-04] MEDS: Pantoprazole 40 MG VIAL IVP SCH (21:02)
[2022-12-05 06:07] LABS: Anion Gap 12 mmol/L (10-20); BUN (Urea Nitrogen) 18 mg/dL (8.4-25.7); Calc. Creatinine Clearance 69 mL/min (70-130); Calcium 8.8 mg/dL (7.8-10.44); Carbon Dioxide 28 mmol/L (23-31); Cardiac Risk 2.7 (Less than 4.5); Chloride 108 mmol/L (98-107); Cholesterol 115 mg/dl (< 200 Desired); Estimated GFR 58; Glucose 86 mg/dL (83-110); HDL Cholesterol 43 mg/dL (>60 Neg Risk); Potassium 3.9 mmol/L (3.5-5.1); Sodium 144 mmol/L (136-145)
[2022-12-05 06:10] LABS: #Eosinphils 0.2 thou/uL (0.0-0.7); #Monocytes 0.4 thou/uL (0.11-0.59); #Neutrophils 2.7 thou/uL (1.40-6.50); %Basophils 0.6 % (0.0-1.0); %Eosinophils 5.8 % (0.0-10.0); %Lymphocytes 22.8 % (21.0-51.0); %Monocytes 8.3 % (0.0-10.0); %Neutrophils 62.6 % (42.0-75.0); Hemoglobin 7.9 g/dL (14.0-18.0); Mean Corpuscular HGB CONC 34.3 g/dL (32.0-36.0); Mean Corpuscular Hemoglobin 31.8 pg (27.0-31.0); Mean Corpuscular Volume 92.5 fl (78.0-98.0); Mean Platelet Volume 9.3 fL (7.4-10.4); Platelet Count 85 10x3/uL (130-400); White Blood Cell (WBC) Count 4.3 10x3/uL (4.8-10.8)
[2022-12-05 06:20] LABS: Triglycerides 57 mg/dL (Less than 150)
[2022-12-05 06:21] LABS: LDL Cholesterol, Calculated 91 mg/dL
[2022-12-05] MEDS: Aspirin 81 mg Enteric Coated Tablet PO SCH (09:49)
[2022-12-05] MEDS: Aspirin 300 MG Suppository PR SCH (09:50)
[2022-12-05] MEDS: Gabapentin 100 MG CAP PO SCH ×3 (09:50→20:17)
[2022-12-05] MEDS: Pantoprazole 40 MG VIAL IVP SCH ×2 (09:52→20:17)
[2022-12-05] MEDS: cefTRIAXone\\ROCEPHIN 1 GM in Sodium Chloride 0.9% 100 ML IVPB SCH (16:26)
[2022-12-05] MEDS: Dexamethasone 4 mg/ml Vial SLOW IVP SCH (17:41)
[2022-12-05] MEDS: Rosuvastatin 20 MG TAB PO SCH (20:18)
[2022-12-06 05:45] LABS: Anion Gap 14 mmol/L (10-20); BUN (Urea Nitrogen) 17 mg/dL (8.4-25.7); Calc. Creatinine Clearance 64 mL/min (70-130); Calcium 8.7 mg/dL (7.8-10.44); Carbon Dioxide 27 mmol/L (23-31); Chloride 105 mmol/L (98-107); Estimated GFR 54; Glucose 130 mg/dL (83-110); Potassium 4.4 mmol/L (3.5-5.1); Sodium 142 mmol/L (136-145)
[2022-12-06 05:55] LABS: #Lymphocytes 0.6 thou/uL (1.20-3.40); #Monocytes 0.2 thou/uL (0.11-0.59); #Neutrophils 3.1 thou/uL (1.40-6.50); %Basophils 0.4 % (0.0-1.0); %Eosinophils 0.2 % (0.0-10.0); %Lymphocytes 15.7 % (21.0-51.0); %Neutrophils 78.8 % (42.0-75.0); Hemoglobin 7.8 g/dL (14.0-18.0); Mean Corpuscular HGB CONC 32.7 g/dL (32.0-36.0); Mean Corpuscular Hemoglobin 30.3 pg (27.0-31.0); Mean Corpuscular Volume 92.7 fl (78.0-98.0); Mean Platelet Volume 9.6 fL (7.4-10.4); Platelet Count 85 10x3/uL (130-400); RBC Distribution Width 14.1 % (11.5-14.5); Red Blood Cell (RBC) Count 2.56 mill/uL (4.70-6.10); White Blood Cell (WBC) Count 3.9 10x3/uL (4.8-10.8)
[2022-12-06] MEDS ORDERED: Metoprolol Tartrate 25 MG TAB PO SCH (09:00)
[2022-12-06] MEDS: Pantoprazole 40 MG VIAL IVP SCH (10:39)
[2022-12-06] MEDS: NIFEdipine XL 60 MG TAB PO SCH (10:39)
[2022-12-06] MEDS: Aspirin 300 MG Suppository PR SCH (10:40)
[2022-12-06] MEDS: Aspirin 81 mg Enteric Coated Tablet PO SCH (10:40)
[2022-12-06] MEDS: Gabapentin 100 MG CAP PO SCH ×3 (10:40→21:50)
[2022-12-06] MEDS: Hydrocortisone 10 mg Tablet PO SCH (17:03)
[2022-12-06] MEDS: Rosuvastatin 20 MG TAB PO SCH (21:50)
[2022-12-07 02:04] LABS: Creatinine, Urine 37.62 mg/dL (63-166)
[2022-12-07] MEDS: Hydrocortisone 10 mg Tablet PO SCH ×2 (03:11→10:15)
[2022-12-07 05:11] LABS: Anion Gap 15 mmol/L (10-20); BUN (Urea Nitrogen) 22 mg/dL (8.4-25.7); Calc. Creatinine Clearance 65 mL/min (70-130); Calcium 9.1 mg/dL (7.8-10.44); Carbon Dioxide 28 mmol/L (23-31); Chloride 105 mmol/L (98-107); Estimated GFR 54; Glucose 120 mg/dL (83-110); Sodium 144 mmol/L (136-145)
[2022-12-07 06:56] LABS: #Eosinphils 0.1 thou/uL (0.0-0.7); #Lymphocytes 1.2 thou/uL (1.20-3.40); #Monocytes 0.3 thou/uL (0.11-0.59); #Neutrophils 3.6 thou/uL (1.40-6.50); %Basophils 0.3 % (0.0-1.0); %Eosinophils 1.2 % (0.0-10.0); %Lymphocytes 22.9 % (21.0-51.0); %Monocytes 6.3 % (0.0-10.0); %Neutrophils 69.4 % (42.0-75.0); Hemoglobin 7.6 g/dL (14.0-18.0); Mean Corpuscular HGB CONC 36.6 g/dL (32.0-36.0); Mean Corpuscular Hemoglobin 34.4 pg (27.0-31.0); Mean Corpuscular Volume 93.9 fl (78.0-98.0); Platelet Count 97 10x3/uL (130-400); RBC Distribution Width 14.9 % (11.5-14.5); Red Blood Cell (RBC) Count 2.21 mill/uL (4.70-6.10); White Blood Cell (WBC) Count 5.2 10x3/uL (4.8-10.8)
[2022-12-07] MEDS: Carvedilol 6.25 MG TAB PO SCH ×2 (09:18→17:11)
[2022-12-07] MEDS: NIFEdipine XL 60 MG TAB PO SCH (09:18)
[2022-12-07] MEDS: Gabapentin 100 MG CAP PO SCH ×2 (09:19→15:52)
[2022-12-07] MEDS: Aspirin 81 mg Enteric Coated Tablet PO SCH (09:27)
[2022-12-07 16:45] VITALS: BP 114/53; TEMP 97.7
[2022-12-07] MEDS ORDERED: Hydrocortisone 10 mg Tablet PO SCH (18:00)
[2022-12-08] MEDS ORDERED: Hydrocortisone 10 mg Tablet PO SCH ×2 (08:00→21:00)
== END 2022-12-07 18:05 | DRG 645 ==
LOC: ERS 11:49 → ERHOLD 14:41 → NEURO 18:21 → OBSVTOIN 12-05 16:45
PROVIDERS: ADMIT Family Medicine; ATTEND Hospitalist
PROC: 6A4Z0ZZ Hypothermia, Single (ICD-10-PCS; principal; 2022-12-05)
PROC: 4A10X4Z Monitoring of Central Nervous Electrical Activity, External Approach (ICD-10-PCS; 2022-12-06)
DX: E27.40 Unspecified adrenocortical insufficiency (principal); D69.6 Thrombocytopenia, unspecified; I25.10 Atherosclerotic heart disease of native coronary artery without angina pectoris; R68.0 Hypothermia, not associated with low environmental temperature; I08.2 Rheumatic disorders of both aortic and tricuspid valves; E03.8 Other specified hypothyroidism; F41.9 Anxiety disorder, unspecified; N18.30 Chronic kidney disease, stage 3 unspecified; R00.1 Bradycardia, unspecified; F03.90 Unspecified dementia, unspecified severity, without behavioral disturbance, psychotic disturbance, mood disturbance, and anxiety; E78.5 Hyperlipidemia, unspecified; Z95.1 Presence of aortocoronary bypass graft; Z98.890 Other specified postprocedural states; Z90.49 Acquired absence of other specified parts of digestive tract; Z88.8 Allergy status to other drugs, medicaments and biological substances; Z79.899 Other long term (current) drug therapy
CPT/HCPCS: 36415; 70450; 70551; 71045; 80048; 80053; 80061; 80307; 80400; 81003; 81015; 82024; 82140; 82533; 82550; 82553; 82570; 83036; 83690; 84156; 84439; 84443; 84481; 84484; 85025; 85610; 85730; 86850; 86900; 86901; 86921; 87040; 93005; 93306; 93880; 94640; 94760; 95712; 95819; 95957; 96374; 96375; 96376; C9113; G0378; J0696; J0834; J1100; J3490; J7611

== ENCOUNTER 2024-07-26 08:23 | Emergency (ER) | payer MEDICARE, MEDICAID ==
[2024-07-26] MEDS ORDERED: Droperidol 5 MG/2 ML VIAL ONE (08:52)
[2024-07-26] MEDS ORDERED: Lorazepam 2 MG/ML VIAL ONE ×4 (09:29→15:58)
[2024-07-26] MEDS ORDERED: levETIRAcetam 500 MG (5 mL) VIAL ONE (09:40)
[2024-07-26 09:51] LABS: AST (SGOT) 11 U/L (5-34); Alkaline Phosphatase 75 U/L (40-110); Anion Gap 13 mmol/L (10-20); BUN (Urea Nitrogen) 34 mg/dL (8.4-25.7); Bilirubin, Total 0.7 mg/dL (0.2-1.2); Calc. Creatinine Clearance 0 mL/min (70-130); Calcium 7.8 mg/dL (7.8-10.44); Carbon Dioxide 23 mmol/L (23-31); Chloride 111 mmol/L (98-107); Estimated GFR 42; Globulin 3.3 g/dL (2.4-3.5); Glucose 112 mg/dL (83-110); Potassium 3.9 mmol/L (3.5-5.1); Protein, Total 6.3 g/dL (5.8-8.1); Sodium 143 mmol/L (136-145)
[2024-07-26 09:52] LABS: ALT (SGPT) 11 U/L (8-55)
[2024-07-26 10:04] LABS: #Basophils Less than 0.03 10x3/uL (0.0-0.2); %Basophils 0.6 % (0.0-1.0); %Eosinophils 1.7 % (0.0-10.0); %Lymphocytes 19.8 % (21.0-51.0); %Monocytes 8.1 % (0.0-10.0); %Neutrophils 69.2 % (42.0-75.0); Hematocrit 25.2 % (42.0-52.0); Hemoglobin 9.8 g/dL (14.0-18.0); Mean Corpuscular HGB CONC 38.9 g/dL (32.0-36.0); Mean Corpuscular Hemoglobin 35.6 pg (27.0-31.0); Mean Corpuscular Volume 91.6 fL (78.0-98.0); RBC Distribution Width 16.5 % (11.5-14.5); Red Blood Cell (RBC) Count 2.75 mill/uL (4.70-6.10)
[2024-07-26 10:18] LABS: Bacteria/HPF None Seen HPF (None Seen); Bilirubin Negative (Negative); Blood, Urine Trace (Negative); CAUTI Indications for Culture Alt mental st,lethar; Clarity Clear (Clear); Glucose, Urine (Dipstick) Normal (Negative); Ketone, Urine Negative (Negative); Leukocyte Negative Leu/uL (Negative); Nitrite Negative (Negative); Protein, Urine (Dipstick) Negative (Neg-Trace); RBC/HPF 0-3 HPF (0-3); Squamous Epithelial None Seen HPF (0-3); Urobilinogen Normal mg/dL (Less than 2); WBC/HPF 0-3 HPF (0-3); pH, Urine 5.5 (5.0-9.0)
[2024-07-26 10:20] LABS: Urine Culture Reflex No No
[2024-07-26 10:59] LABS: Anisocytosis SLIGHT = 6-15 cells HPF (0-5); Hypochromia SLIGHT = 6-15 cells HPF (0-5); Macrocytosis SLIGHT = 6-15 cells HPF (0-5); Platelet Adequacy Comment Platelets Decreased; Polychromasia SLIGHT = 2-3 cells HPF (0-2)
[2024-07-26 11:19] LABS: Platelet Count 100 10x3/uL (130-400)
[2024-07-26] MEDS ORDERED: OLANZapine 10 MG VIAL IM ONE (12:33)
[2024-07-26] MEDS ORDERED: Sterile Water 10 ML ONE (13:09)
[2024-07-26] MEDS ORDERED: Magnesium 2 GM/50 ML BAG (IN WATER) ONE (14:43)
== END 2024-07-26 18:00 | disposition short-term general hospital (02) ==
LOC: ERS 08:23
DX: R56.9 Unspecified convulsions (principal); E78.5 Hyperlipidemia, unspecified; I10 Essential (primary) hypertension
CPT/HCPCS: 51701; 70450; 71045; 80053; 81001; 83735; 84146; 85025; 93005; 96365; 96372; 96375; 96376; 99285; J1790; J1953; J2060; J3475; 36415